=== PATIENT | female | born 1995 | race American Indian/Alaskan Native ===

== ENCOUNTER 2018-11-02 13:00 | Emergency (ER) | payer OTHER ==
[2018-11-02 14:08] VITALS: BP 102/54
[2018-11-02 15:31] LABS: HCG Qualitative,Urine Positive (Negative)
[2018-11-02 15:34] LABS: Bilirubin,Urine NEG (Negative); Blood,Urine NEG (Negative); Color,Urine Yellow (Yellow); Mucus,Urine 2+ /HPF; Urobilinogen,Urine < 2.0 mg/dL (<2.0)
[2018-11-02 16:29] LABS: Hematocrit 39.2 % (30.3-42.9); Hemoglobin 13.4 gm/dl (10.1-14.3); Mean Corpuscular HGB Conc 34 % (30-34); Mean Corpuscular Volume 92 fl (79-97); Platelet Count 254 K/mm3 (140-440); Red Blood Count 4.28 M/mm3 (3.65-5.03); Red Cell Distribution Width 12.7 % (13.2-15.2)
[2018-11-02 16:45] LABS: Alanine Aminotransferase 8 units/L (7-56); Albumin 4.3 g/dL (3.9-5); BUN/Creatinine Ratio 12; Blood Urea Nitrogen 6 mg/dL (7-17); Calcium 9.4 mg/dL (8.4-10.2); Hemolysis Index 27
--- NOTE | 2018-11-02 17:47 | Emergency Department Report ---
Chief Complaint: Abdominal Pain Stated Complaint: STOMACH PAIN Time Seen by Provider: 11/02/18 17:46 - HPI History of Present Illness: DISCUSSED PREG WITH PT HER LMP WAS THE FIRST WEEK OF LAST MONTH PER HER SISTER G2 PT WORRIED ABOUT STD US PENDING MSE COMPLETED - Exam Vital Signs: Vital Signs 11/02/18 14:07 Temperature 98.6 F Pulse Rate 78 Respiratory 16 Rate Blood Pressure 102/54 O2 Sat by Pulse 99 Oximetry MSE screening note: Focused history and physical exam performed. Due to findings the following was ordered: ED Medical Decision Making - Lab Data Result diagrams: 11/02/18 16:08 11/02/18 16:08 ED Disposition for MSE Condition: Stable Instructions: Abdominal Pain (ED) Referrals: ELLIE GRANDE MD [Primary Care Provider] - 3-5 Days
--- NOTE | 2018-11-02 19:05 | Emergency Department Report ---
ED Female HPI - General Chief complaint: Abdominal Pain Stated complaint: STOMACH PAIN Time Seen by Provider: 11/02/18 17:46 Source: patient Mode of arrival: Ambulatory Limitations: No Limitations - History of Present Illness Initial comments: DISCUSSED PREG WITH PT HER LMP WAS THE FIRST WEEK OF LAST MONTH PER HER SISTER G2 PT WORRIED ABOUT STD US PENDING MSE COMPLETED MD Complaint: other (abd pain and cramping ) Onset/Timin -: days(s) Location: LLQ, RLQ Radiation: suprapubic Severity: moderate Severity scale (0 -10): 3 Quality: cramping Consistency: intermittent Improves with: none Worsens with: none Are you Now?: Yes Last Menstrual Period: 11/04/18 EDC: 08/11/19 Associated Symptoms: abdominal pain. denies: vaginal discharge, vaginal bleeding, dysuria - Related Data Sexually active: Yes : 2 Para: 1 A: 0 Previous Rx's Medication Instructions Recorded Last Taken Type Fluconazole [Diflucan TAB] 150 mg PO ONCE #1 tablet 05/18/18 Unknown Rx metroNIDAZOLE [Metronidazole] 1 applicator VG QHS 7 Days #1 tube 11/02/18 Unknown Rx Allergies Allergy/AdvReac Type Severity Reaction Status Date / Time No Known Allergies Allergy Verified 11/02/18 13:04 ED Review of Systems ROS: Stated complaint: STOMACH PAIN Other details as noted in HPI Constitutional: denies: chills, fever Eyes: denies: eye pain, eye discharge, vision change ENT: denies: ear pain, throat pain Respiratory: denies: cough, shortness of breath, wheezing Cardiovascular: denies: chest pain, palpitations Endocrine: no symptoms reported Gastrointestinal: abdominal pain, nausea Genitourinary: denies: urgency, dysuria, discharge Musculoskeletal: denies: back pain, joint swelling, arthralgia Skin: denies: rash, lesions Neurological: denies: headache, weakness, paresthesias Psychiatric: denies: anxiety, depression Hematological/Lymphatic: denies: easy bleeding, easy bruising ED Past Medical Hx - Past Medical History Previous Medical History?: No - Surgical History Past Surgical History?: No - Social History Smoking Status: Never Smoker Substance Use Type: None - Medications Home Medications: Home Medications Medication Instructions Recorded Confirmed Last Taken Type Fluconazole [Diflucan TAB] 150 mg PO ONCE #1 tablet 05/18/18 Unknown Rx metroNIDAZOLE [Metronidazole] 1 applicator VG QHS 7 Days #1 tube 11/02/18 Unknown Rx ED Physical Exam - General Limitations: No Limitations General appearance: alert, in no apparent distress - Head Head exam: Present: atraumatic, normocephalic - Eye Eye exam: Present: normal appearance, PERRL, EOMI Pupils: Present: normal accommodation - ENT ENT exam: Present: mucous membranes moist - Neck Neck exam: Present: normal inspection, full ROM. Absent: lymphadenopathy - Respiratory Respiratory exam: Present: normal lung sounds bilaterally. Absent: respiratory distress, wheezes, stridor, chest wall tenderness - Cardiovascular Cardiovascular Exam: Present: regular rate, normal rhythm, normal heart sounds. Absent: systolic murmur, diastolic murmur, rubs, gallop - GI/Abdominal GI/Abdominal exam: Present: soft, normal bowel sounds. Absent: distended, tenderness, guarding, rebound, rigid, bruit, hernia - Rectal Rectal exam: Present: deferred - External exam: Present: other (pt defers vaginal exam to obgyn ) - Extremities Exam Extremities exam: Present: normal inspection, full ROM, normal capillary refill. Absent: tenderness - Back Exam Back exam: Present: normal inspection, full ROM. Absent: tenderness, CVA tenderness (R), CVA tenderness (L), muscle spasm, paraspinal tenderness, vertebral tenderness, rash noted - Neurological Exam Neurological exam: Present: alert, oriented X3, CN II-XII intact, normal gait, reflexes normal - Psychiatric Psychiatric exam: Present: normal affect, normal mood - Skin Skin exam: Present: warm, dry, intact, normal color. Absent: rash ED Course Vital Signs 11/02/18 14:07 Temperature 98.6 F Pulse Rate 78 Respiratory 16 Rate Blood Pressure 102/54 O2 Sat by Pulse 99 Oximetry ED Medical Decision Making - Lab Data Result diagrams: 11/02/18 16:08 11/02/18 16:08 Lab Results 11/02/18 11/02/18 11/02/18 Range/Units 14:56 16:08 16:08 WBC 11.3 H (4.5-11.0) K/mm3 RBC 4.28 (3.65-5.03) M/mm3 Hgb 13.4 (10.1-14.3) gm/dl Hct 39.2 (30.3-42.9) % MCV 92 (79-97) fl MCH 31 (28-32) pg MCHC 34 (30-34) % RDW 12.7 L (13.2-15.2) % Plt Count 254 (140-440) K/mm3 Sodium 138 (137-145) mmol/L Potassium 3.7 (3.6-5.0) mmol/L Chloride 101.5 (98-107) mmol/L Carbon Dioxide 26 (22-30) mmol/L Anion Gap 14 mmol/L BUN 6 L (7-17) mg/dL Creatinine 0.5 L (0.7-1.2) mg/dL Estimated GFR > 60 ml/min BUN/Creatinine Ratio 12 % Glucose 77 (65-100) mg/dL Calcium 9.4 (8.4-10.2) mg/dL Total Bilirubin 0.30 (0.1-1.2) mg/dL AST 19 (5-40) units/L ALT 8 (7-56) units/L Alkaline Phosphatase 69 (35-129) units/L Total Protein 6.9 (6.3-8.2) g/dL Albumin 4.3 (3.9-5) g/dL Albumin/Globulin Ratio 1.7 % HCG, Quant (0-4) mIU/mL Urine Color Yellow (Yellow) Urine Turbidity Slightly-cloudy (Clear) Urine pH 7.0 (5.0-7.0) Ur Specific [place] 1.019 (1.003-1.030) Urine Protein 30 mg/dl (Negative) mg/dL Urine Glucose (UA) Neg (Negative) mg/dL Urine Ketones Neg (Negative) mg/dL Urine Blood Neg (Negative) Urine Nitrite Neg (Negative) Ur Reducing Substances Not Reportable Urine Bilirubin Neg (Negative) Urine Ictotest Not Reportable Urine Urobilinogen < 2.0 (<2.0) mg/dL Ur Leukocyte Esterase Neg (Negative) Urine WBC (Auto) 4.0 (0.0-6.0) /HPF Urine RBC (Auto) 1.0 (0.0-6.0) /HPF U Epithel Cells (Auto) 6.0 (0-13.0) /HPF Urine Mucus 2+ /HPF Urine HCG, Qual Positive A (Negative) Blood Type 11/02/18 11/02/18 Range/Units 16:08 16:08 WBC (4.5-11.0) K/mm3 RBC (3.65-5.03) M/mm3 Hgb (10.1-14.3) gm/dl Hct (30.3-42.9) % MCV (79-97) fl MCH (28-32) pg MCHC (30-34) % RDW (13.2-15.2) % Plt Count (140-440) K/mm3 Sodium (137-145) mmol/L Potassium (3.6-5.0) mmol/L Chloride (98-107) mmol/L Carbon Dioxide (22-30) mmol/L Anion Gap mmol/L BUN (7-17) mg/dL Creatinine (0.7-1.2) mg/dL Estimated GFR ml/min BUN/Creatinine Ratio % Glucose (65-100) mg/dL Calcium (8.4-10.2) mg/dL Total Bilirubin (0.1-1.2) mg/dL AST (5-40) units/L ALT (7-56) units/L Alkaline Phosphatase (35-129) units/L Total Protein (6.3-8.2) g/dL Albumin (3.9-5) g/dL Albumin/Globulin Ratio % HCG, Quant [id number] H (0-4) mIU/mL Urine Color (Yellow) Urine Turbidity (Clear) Urine pH (5.0-7.0) Ur Specific [place] (1.003-1.030) Urine Protein (Negative) mg/dL Urine Glucose (UA) (Negative) mg/dL Urine Ketones (Negative) mg/dL Urine Blood (Negative) Urine Nitrite (Negative) Ur Reducing Substances Urine Bilirubin (Negative) Urine Ictotest Urine Urobilinogen (<2.0) mg/dL Ur Leukocyte Esterase (Negative) Urine WBC (Auto) (0.0-6.0) /HPF Urine RBC (Auto) (0.0-6.0) /HPF U Epithel Cells (Auto) (0-13.0) /HPF Urine Mucus /HPF Urine HCG, Qual (Negative) Blood Type A POSITIVE - Radiology Data Radiology results: report reviewed singlue IUP 5 weeks and 6 days, FHR: 117 bpm - Medical Decision Making Ultrasound so IUP 5 weeks and 6 days . Heart rate 117 bpm ua is normal, .A positive patient is no abdominal pain no vaginal bleeding or spotting denies vaginal exam however states that her partner was positive for gonorrhea plan today treat for gonorrhea / STD exposure with Rocephin and azithromycin obesity to home with clindamycin vaginal cream for first trimester trichomonas patient will follow up with [facility] in 2 days . Patient verbalized agreement and understand the discharge plan will be DC'd home in stable condition at this time Critical care attestation.: If time is entered above; I have spent that time in minutes in the direct care of this critically ill patient, excluding procedure time. ED Disposition Clinical Impression: STD exposure Qualifiers: Weeks of gestation: less than 8 weeks Qualified Code(s): Z3A.01 - Less than 8 weeks gestation of Disposition: DC-01 TO HOME OR SELFCARE Is pt being admited?: No Does the pt Need Aspirin: No Condition: Stable Instructions: Abdominal Pain (ED), (ED), Abdominal Pain in (ED), Sexually Transmitted Diseases (ED) Prescriptions: metroNIDAZOLE [Metronidazole] 1 applicator QHS 7 Days #1 tube Referrals: TY RASMUSSEN MD [Staff Physician] - 2-3 Days Forms: Work/School Release Form(ED) Time of Disposition: 19:19
[2018-11-02] MEDS ORDERED: ZITHROMAX PO ONE (19:12)
[2018-11-02] MEDS ORDERED: XYLOCAINE 1% MPF 5 mL INFILTRATI ONE (19:12)
[2018-11-02] MEDS ORDERED: ROCEPHIN IM ONE (19:12)
--- NOTE | 2018-11-02 19:44 | Ultrasound Report ---
PROCEDURE: US OB TRANSVAGINAL TECHNIQUE: Real-time transabdominal and transvaginal sonography of the uterus, placenta, amniotic fl uid, adnexa, and fetus was performed with image documentation. Measurements were obtained to determin e age/size. M-mode Doppler was used to document heartbeat. ADDITIONAL GESTATION: None. HISTORY: PAIN PREG COMPARISONS: None . FINDINGS: Uterus measures 8.1 x 5.4 x 6.8 cm. CRL: 4 mm, which corresponds to a gestational age of: 6 weeks, 1 days. Yolk Sac: Appropriate for gestational age. . Embryonic Cardiac Activity: 117 bpm . Gestational Sac: Size and shape are appropriate for gestational age Cervix: Normal. Right Ovary: Complex cyst measuring 2.2 cm . Left Ovary: Normal . Estimated delivery date: 06/27/2019 Uterus and adnexa: Normal. IMPRESSION: Single live intrauterine gestation at approximately 6 weeks 1 day . EDC by US 06/27/2019 . This document is electronically signed by Rose Muniz MD., Nov 02 2018 07:42:50 PM ET
== END 2018-11-02 20:05 | disposition home or self-care (01) ==
LOC: ED 13:00
DX: O26.891 Other specified pregnancy related conditions, first trimester (principal); Z20.2 Contact with and (suspected) exposure to infections with a predominantly sexual mode of transmission; Z3A.01 Less than 8 weeks gestation of pregnancy
CPT/HCPCS: 36415; 76801; 76817; 80053; 81001; 81025; 84702; 85027; 86900; 86901; 96372; 99284; J0696